=== PATIENT | male | born 1975 | race Caucasian/White ===

== ENCOUNTER 2019-09-21 03:34 | Outpatient (CLI) | payer OTHER, SELFPAY ==
--- NOTE | 2019-09-21 09:20 | PFT_ITS ---
PULMONARY FUNCTION TEST REPORT DATE OF SERVICE: September 21, 2019 REQUESTING PROVIDER: Dr. Alvaro Rudd M.D. Spirometry shows no evidence of obstructive airways disease, no bronchodilator response. IMPRESSION: Normal spirometry. Clinical correlation recommended. VELMA/maryann D/
--- NOTE | 2019-09-21 11:07 | DI.RAD_ITS ---
EXAM: XR CHEST 2V PA LATERAL XR CHEST 2V PA LATERAL CLINICAL HISTORY: SOB R06.02 SOB R06.02 TECHNIQUE: 2D digital imaging was performed. COMPARISON: No exams were available for comparison FINDINGS: The heart is not enlarged. The lungs are clear and well expanded. No pleural effusion seen. Mediastin al contours appear intact. IMPRESSION: Normal chest
[2019-09-21] MEDS: Albuterol HFA 18 GM 200 PUFF INH IH (14:23)
[2019-09-21] MEDS: Inhaler, Assist Device 1 EACH MC (14:23)
== END 2019-09-21 03:54 ==
PROVIDERS: PCP Orthopaedic Surgery; Visit Provider Orthopaedic Surgery
DX: R06.02 Shortness of breath (principal); R55 Syncope and collapse; Z57.39 Occupational exposure to other air contaminants
CPT/HCPCS: 94060; 71046